=== PATIENT | male | born 1990 | race Caucasian/White ===

== ENCOUNTER 2016-11-28 15:01 | Emergency (ER) | payer OTHER, MEDICAID ==
[~2016-11-28] VITALS: Ht 182.9 cm; Wt 84.0 kg
[~2016-11-28 15:01] MED LIST: ALPR0.25 PO; CYCL-259 PO; OXYC20TA2 PO; OXYC40TA27 PO; SENN1TAB7 PO
[2016-11-28] MEDS ORDERED: SERT100T PO (15:10)
[2016-11-28] MEDS ORDERED: QUET150T PO (15:10)
[2016-11-28] MEDS ORDERED: LIDOCAINE 1%-EPI 1:100K, 20ML INFIL ONE (15:30)
[2016-11-28 15:36] VITALS: BP 133/93
[2016-11-28] MEDS ORDERED: LIDOCAINE 1%, 20ML ONE (15:51)
[2016-11-28 15:53] LABS: DAU SCREEN DISCLAIMER
[2016-11-28] MEDS ORDERED: BACITRACIN ZINC OINT 500U/GM, 0.9 GM ONE (17:02)
== END 2016-11-28 17:29 | disposition home or self-care (01) ==
LOC: ED 15:53
DX: S01.111A Laceration without foreign body of right eyelid and periocular area, initial encounter (principal); F17.200 Nicotine dependence, unspecified, uncomplicated; F14.10 Cocaine abuse, uncomplicated; F15.10 Other stimulant abuse, uncomplicated; Z88.1 Allergy status to other antibiotic agents; X58.XXXA Exposure to other specified factors, initial encounter; Y93.89 Activity, other specified; Y92.89 Other specified places as the place of occurrence of the external cause; Y99.8 Other external cause status
CPT/HCPCS: 12011; 80307